=== PATIENT | female | born 1960 | race Caucasian/White ===

== ENCOUNTER 2017-12-17 02:52 | Emergency (ER) | payer MEDICARE, OTHER ==
[~2017-12-17] VITALS: Ht 177.8 cm; Wt 91.5 kg
[~2017-12-17 02:52] MED LIST: HYDR-565 PO; MORP30TA PO; NABUMETONE PO; NAPR-1154 PO; TRAZ150T78 PO
[2017-12-17 03:02] VITALS: BP 133/94
[2017-12-17 03:25] LABS: CLARITY,URINE CLOUDY (Clear); COLOR,URINE YELLOW (Yellow); GLUCOSE, URINE NEGATIVE (Neg); KETONES,URINE NEGATIVE (Neg); LEUKOCYTE ESTERASE ,URINE LARGE (Neg); NITRITES, URINE NEGATIVE (Neg); OCCULT BLOOD,URINE LARGE (Neg); PROTEIN,URINE 100 mg/dl (Neg); UA COLLECTION TYPE CLN CATCH MIDSTREAM; UROBILINOGEN,URINE 0.2 E.U/dL (0.2-1.0)
[2017-12-17 03:44] LABS: RBC,URINE 50-100 /HPF (0-2); WBC,URINE TNTC /HPF (0-4)
[2017-12-17 03:45] LABS: BACTERIA,URINE 2+ /HPF (Neg)
[2017-12-17] MEDS ORDERED: nitrofurantoin macrocrystal 100mg capsule PO ONE (03:45)
[2017-12-17] MEDS ORDERED: phenazopyridine 100mg tablet PO ONE (03:45)
[2017-12-17 03:46] LABS: MUCUS STRANDS FEW /LPF (Neg); SQUAMOUS EPITHELIAL CELL,UR FEW /LPF (FEW); WBC CLUMPS,URINE FEW /HPF (NEGATIVE)
[2017-12-17] MEDS ORDERED: PHEN-824 PO (03:56)
[2017-12-17] MEDS ORDERED: NITR100C6 PO (03:56)
[2017-12-17] MEDS ORDERED: nitrofuran/nitrofuran macrocrysal 100 MG capsule PO ONE (04:00)
== END 2017-12-17 04:09 | disposition home or self-care (01) ==
LOC: ER 02:52
DX: N39.0 Urinary tract infection, site not specified (principal); I10 Essential (primary) hypertension; G89.29 Other chronic pain; Z79.899 Other long term (current) drug therapy
CPT/HCPCS: 81001; 87077; 87088; 87186; 99284

== ENCOUNTER 2018-04-25 15:04 | Emergency (ER) | payer MEDICARE, OTHER ==
[~2018-04-25] VITALS: Ht 177.8 cm; Wt 88.6 kg
[~2018-04-25 15:04] MED LIST changes: +NITR100C6 PO; +PHEN-824 PO
[2018-04-25] MEDS ORDERED: ketorolac tromethamine 15mg/ml inj. IV ONE (15:25)
[2018-04-25] MEDS ORDERED: ondansetron/PF 4mg/2ml inj IV ONE (15:25)
[2018-04-25] MEDS ORDERED: normal saline 1000ml 1,000 ML IV ONE (15:25)
[2018-04-25] MEDS ORDERED: ketorolac trometh. 30mg/ml inj. IV ONE (15:25)
[2018-04-25] MEDS ORDERED: ONDA8TAB9 PO (16:46)
[2018-04-25 17:05] VITALS: BP 142/83
== END 2018-04-25 17:07 | disposition home or self-care (01) ==
LOC: ER 15:05
DX: R07.89 Other chest pain (principal); T36.4X5A Adverse effect of tetracyclines, initial encounter; I10 Essential (primary) hypertension; M19.90 Unspecified osteoarthritis, unspecified site; G89.29 Other chronic pain; Z90.89 Acquired absence of other organs; Z88.1 Allergy status to other antibiotic agents; Z79.899 Other long term (current) drug therapy; Y92.9 Unspecified place or not applicable
CPT/HCPCS: 36415; 71045; 84484; 93005; 96361; 96374; 96375; 99285; J1885; J2405; J7030

== ENCOUNTER 2018-06-21 01:51 | Emergency (ER) | payer MEDICARE, OTHER ==
[~2018-06-21] VITALS: Ht 177.8 cm; Wt 94.0 kg
[~2018-06-21 01:51] MED LIST changes: +HYDR-4353 PO; -HYDR-565 PO; +ONDA8TAB9 PO
[2018-06-21 01:55] VITALS: BP 146/94
[2018-06-21] MEDS ORDERED: cloNIDine 0.1 mg tablet PO ONE (02:15)
[2018-06-21] MEDS ORDERED: diphenhydrAMINE 50 mg/ml inj IM ONE (02:15)
[2018-06-21] MEDS ORDERED: metoclopramide 5 mg/ml inj IM ONE (02:15)
== END 2018-06-21 03:10 | disposition home or self-care (01) ==
LOC: ER 01:52
DX: R51 Headache (principal); H92.02 Otalgia, left ear; R11.2 Nausea with vomiting, unspecified; R61 Generalized hyperhidrosis
CPT/HCPCS: 96372; 99284; J1200; J2765

== ENCOUNTER 2021-11-25 03:25 | Emergency (ER) | payer MEDICARE ==
[~2021-11-25] VITALS: Ht 177.8 cm; Wt 90.2 kg
[2021-11-25 03:56] LABS: CLARITY,URINE SLIGHTLY CLOUDY (Clear); COLOR,URINE YELLOW (Yellow); GLUCOSE, URINE NEGATIVE (Neg); KETONES,URINE NEGATIVE (Neg); LEUKOCYTE ESTERASE ,URINE TRACE (Neg); NITRITES, URINE NEGATIVE (Neg); OCCULT BLOOD,URINE SMALL (Neg); PROTEIN,URINE 100 mg/dl (Neg); UROBILINOGEN,URINE 0.2 E.U/dL (0.2-1.0)
[2021-11-25 04:04] LABS: BASOPHILS % (AUTO) 0.7 % (0-1); EOSINOPHILS # (AUTO) 0.1 X10'3 (0-0.9); EOSINOPHILS % (AUTO) 2.2 % (0-6); HEMATOCRIT 36.2 % (35.0-45.0); HEMOGLOBIN 11.7 g/dl (12.0-16.0); LYMPHOCYTES # (AUTO) 1.6 X10'3 (1.1-4.8); LYMPHOCYTES % (AUTO) 29.5 % (21-51); MEAN CORPUSCULAR HEMOGLOBIN 27.6 PG (27.0-31.0); MEAN CORPUSCULAR HGB CONC 32.2 g/dL (33.0-36.5); MEAN CORPUSCULAR VOLUME 85.7 FL (78-98); MEAN PLATELET VOLUME 6.6 FL (7.4-10.4); MONOCYTES # (AUTO) 0.5 X10'3 (0-0.9); MONOCYTES % (AUTO) 10.2 % (2-12); NEUTROPHILS % (AUTO) 57.4 % (42-75); PLATELET COUNT 264 X10'3 (140-440); RED BLOOD COUNT 4.23 X10'6 (4.20-5.60); RED CELL DISTRIBUTION WIDTH 13.3 % (11.5-14.5); WHITE BLOOD COUNT 5.3 X10'3 (4.5-11.0)
[2021-11-25 04:07] LABS: UA COLLECTION TYPE CLN CATCH MIDSTREAM
[2021-11-25 04:09] LABS: BACTERIA,URINE 2+ /HPF (Neg); MUCUS STRANDS FEW /LPF (Neg); RBC,URINE 0-2 /HPF (0-2); SQUAMOUS EPITHELIAL CELL,UR MODERATE /LPF (FEW); TRANSITIONAL EPI CELLS,URINE FEW /HPF; WBC CLUMPS,URINE FEW /HPF (NEGATIVE)
[2021-11-25 04:10] LABS: HYALINE CASTS 0-3 /LPF (NEGATIVE)
[2021-11-25 04:10] LABS: ALANINE AMINOTRANSFERASE 24 U/L (12-78); ALBUMIN 3.5 G/DL (3.4-5.0); ALBUMIN/GLOBULIN RATIO 0.9 (1.1-1.5); ALKALINE PHOSPHATASE 37 IU/L (46-116); ANION GAP 9 (8-16); ASPARTATE AMINO TRANSFERASE 17 U/L (10-37); BILIRUBIN,TOTAL 0.2 MG/DL (0.1-1.0); BLOOD UREA NITROGEN 31 MG/DL (7-18); BUN/CREATININE RATIO 20.3 (6.6-38.0); CALCIUM 9.8 MG/DL (8.5-10.1); CHLORIDE 102 MMOL/L (99-107); CREATININE 1.53 MG/DL (0.40-0.90); GLUCOSE 92 MG/DL (70-104); LIPASE 140 U/L (73-393); POTASSIUM 4.4 MMOL/L (3.5-5.1); SODIUM 139 MMOL/L (135-145); TOTAL CARBON DIOXIDE 27.9 MMOL/L (24-32); TOTAL PROTEIN 7.2 G/DL (6.4-8.2); eGFR 35 ML/MIN
[2021-11-25 04:59] VITALS: BP 147/68
== END 2021-11-25 05:01 | disposition home or self-care (01) ==
LOC: ER 03:26
DX: R10.32 Left lower quadrant pain (principal); I10 Essential (primary) hypertension; M19.90 Unspecified osteoarthritis, unspecified site; G89.29 Other chronic pain; Z90.89 Acquired absence of other organs; Z88.1 Allergy status to other antibiotic agents; Z79.899 Other long term (current) drug therapy
CPT/HCPCS: 36415; 80053; 81001; 83690; 85025; 87088; 99283

== ENCOUNTER 2022-01-14 09:19 | Day surgery (SDC) | payer MEDICARE ==
[~2022-01-14] VITALS: Ht 167.6 cm; Wt 84.9 kg
[2022-01-14] VITALS (9 sets, daily range): BP systolic 119–134; BP diastolic 67–84
[2022-01-14] MEDS ORDERED: TRAM50TA2 PO (10:08)
[2022-01-14] MEDS ORDERED: LOSA50TA64 PO (10:08)
[2022-01-14] MEDS ORDERED: PER5325T PO (10:08)
[2022-01-14] MEDS ORDERED: ROSU10TA28 PO (10:08)
[2022-01-14] MEDS ORDERED: LEVO50TA8 PO (10:08)
[2022-01-14 10:32] LABS: EOSINOPHILS % (AUTO) 2.6 % (0-6); HEMATOCRIT 31.3 % (35.0-45.0); HEMOGLOBIN 10.3 g/dl (12.0-16.0); LYMPHOCYTES # (AUTO) 0.3 X10'3 (1.1-4.8); LYMPHOCYTES % (AUTO) 15.8 % (21-51); MEAN CORPUSCULAR HEMOGLOBIN 28.2 PG (27.0-31.0); MEAN CORPUSCULAR VOLUME 85.5 FL (78-98); MEAN PLATELET VOLUME 6.2 FL (7.4-10.4); MONOCYTES # (AUTO) 0.4 X10'3 (0-0.9); MONOCYTES % (AUTO) 23.9 % (2-12); NEUTROPHILS % (AUTO) 56.7 % (42-75); PLATELET COUNT 172 X10'3 (140-440); RED BLOOD COUNT 3.66 X10'6 (4.20-5.60); RED CELL DISTRIBUTION WIDTH 12.8 % (11.5-14.5)
[2022-01-14 10:34] LABS: WHITE BLOOD COUNT 1.7 X10'3 (4.5-11.0)
[2022-01-14] MEDS ORDERED: clindamycin 600mg/D5W 50ml 50 ML IV ONE (10:45)
[2022-01-14] MEDS ORDERED: amiodarone/D5 360MG/200ML BAG 200 ML IV ONE (10:45)
[2022-01-14] MEDS ORDERED: LIDOcaine 1%/PF 5ML 10 MG/ML VIAL ONE ×2 (10:59→11:54)
[2022-01-14] MEDS ORDERED: fentaNYL/PF 50MCG/1 ML 2ML syringe ONE ×2 (10:59→11:53)
[2022-01-14] MEDS ORDERED: midazolam 1 mg/ML 2ml injection ONE ×2 (10:59→11:53)
[2022-01-14] MEDS ORDERED: iohexol 300 MG/1 ML 10ml vial ONE (10:59)
[2022-01-14] MEDS ORDERED: glucagon, human recombinant 1mg kit ONE (10:59)
[2022-01-14 11:40] LABS: TOTAL CELLS COUNTED 100
[2022-01-14 11:41] LABS: BURR CELLS FEW; ELLIPTOCYTES FEW; PLATELET ESTIMATE NORMAL; POLYCHROMASIA FEW
[2022-01-14] MEDS ORDERED: zinc oxide ointment 30gm tube TP PRN (12:05)
--- NOTE | 2022-01-14 12:37 | NUR ---
per Dr. Rogers pt is to call oncologist and set up nutrition consult for [employer]. pt and aware. pts will call oncologist.
== END 2022-01-14 15:05 | disposition home or self-care (01) ==
LOC: SSTAY O 09:19
PROVIDERS: ATTEND Radiology Vascular & Interventional Radiology
DX: R13.10 Dysphagia, unspecified (principal); C12 Malignant neoplasm of pyriform sinus; E03.9 Hypothyroidism, unspecified; Z20.822 Contact with and (suspected) exposure to COVID-19; Z88.1 Allergy status to other antibiotic agents; F10.10 Alcohol abuse, uncomplicated; Z98.890 Other specified postprocedural states; Z79.899 Other long term (current) drug therapy
CPT/HCPCS: 49440; 85025; 87635; 99152; 99153; C1713; C9803; J1610; J2250; J3010; J3490; Q9967; 85007; B4087